=== PATIENT | male | born 1940 | race Caucasian/White ===

== ENCOUNTER 2020-02-05 21:43 | Inpatient (IN) | payer MEDICARE ==
[~2020-02-05] VITALS: Ht 185.4 cm; Wt 90.3 kg
[2020-02-05 21:54] VITALS: BP 152/54
--- NOTE | 2020-02-05 22:08 | NUR ---
PT DAUGHTER CONTACT #[phone] JA PUCKETT [phone].
[2020-02-05] MEDS ORDERED: GLUCOPHAGE500 M1 PO (22:09)
[2020-02-05] MEDS ORDERED: LOPRESSOR25 MG PO (22:09)
[2020-02-05] MEDS ORDERED: GLYBURIDE2.5 MG PO (22:09)
[2020-02-05] MEDS ORDERED: PRAVASTATIN SOD10 MG PO (22:09)
[2020-02-05] MEDS ORDERED: ASPIRIN81 M1 PO (22:10)
[2020-02-05] MEDS ORDERED: OMEPRAZOLE40 MG PO (22:10)
[2020-02-05] MEDS ORDERED: STOOL SOFTENER100 M3 PO (22:11)
--- NOTE | 2020-02-05 22:16 | NUR ---
PT PROMPTED FOR URINE SPECIMEN.
--- NOTE | 2020-02-05 22:16 | NUR ---
PT REPORTS RECENT SKIN CA REMOVAL BEHIND RIGHT EAR.NO DRAINAGE NOTED AT THIS TIME.
[2020-02-05 22:31] LABS: MEAN CELL VOLUME 82.4 fl (80.0-94.0); MEAN CORPUSCULAR HGB 23.6 pg (27.0-31.0); MEAN CORPUSCULAR HGB CONC 28.7 g/dl (33.0-37.0); MEAN PLATELET VOLUME 11.2 fl (9.6-12.3); PLATELET COUNT AUTOMATED 149 10*3/uL (130-400); RED BLOOD COUNT 2.16 10*6/uL (4.50-5.90); RED CELL DISTRI WIDTH 19.4 % (0-14.5); WHITE BLOOD COUNT 6.4 10*3/uL (4.8-10.8)
[2020-02-05 22:35] LABS: HEMATOCRIT 17.8 % (42.0-52.0)
--- NOTE | 2020-02-05 22:35 | NUR ---
THIS RN AT BEDSIDE WITH UBALDO STRONG FOR PT RECTAL EXAM.HEMOCCULT SPECIMEN COMPLETED WITH NEGATIVE RESULT.
[2020-02-05 22:45] LABS: ACT PARTIAL THROMBO TIME 21.9 SECONDS (20.0-32.1)
[2020-02-05 22:50] LABS: ALBUMIN 3.6 gm/dl (3.1-4.5); ALKALINE PHOSPHATASE 55 U/L (45-117); BUN 18 mg/dl (7-24); CHLORIDE 108 mmol/L (98-107); CREATININE 1.28 mg/dL (0.70-1.30); LIPASE 175 U/L (73-393); POTASSIUM 3.9 mmol/L (3.5-5.1); SGOT/AST 15 IU/L (3-35); SGPT/ALT 21 U/L (12-78); SODIUM 139 mmol/L (136-145); TOTAL PROTEIN 7.4 gm/dL (6.4-8.2)
[2020-02-05 22:52] LABS: TROPONIN I < 0.015 ng/ml (<0.045)
[2020-02-05 22:54] LABS: BILIRUBIN NEGATIVE (NEGATIVE); BLOOD NEGATIVE (NEGATIVE); CLARITY SL CLOUDY (CLEAR); COLOR YELLOW (YELLOW); GLUCOSE NEGATIVE (NEGATIVE); KETONE NEGATIVE (NEGATIVE); LEUKO ESTERASE 2+ (NEGATIVE); NITRITE NEGATIVE (NEGATIVE); SPECIFIC GRAVITY 1.025 (1.005-1.030); UROBILINOGEN 0.2 E.U./dl (0.2-1.0)
[2020-02-05 22:58] LABS: MICROCYTOSIS SLIGHT; PLATELET SUFFICIENCY NORMAL (NORMAL); TOTAL CELLS COUNTED 100 #CELLS
[2020-02-05 22:59] LABS: OVALOCYTES FEW
[2020-02-05 23:00] LABS: WBC 41-50 wbc/hpf (0-5)
[2020-02-05 23:01] LABS: BACTERIA TRACE
[2020-02-05 23:22] VITALS: BP 141/49
[2020-02-05 23:25] VITALS: BP 141/49
[2020-02-05 23:35] VITALS: BP 131/50
[2020-02-05 23:41] VITALS: BP 126/57
--- NOTE | 2020-02-05 23:42 | NUR ---
INFUSION OF PRBC'S CONTINUES, RATE INCREASED TO 150ML/HR.PT TOLERATING WELL.
--- NOTE | 2020-02-05 23:45 | NUR ---
PER PT, DAUGHTER VIKRAM CONTACTED AND PROVIDED UPDATE ON PT PLAN OF ADMISSION AND CARE.
[2020-02-05 23:55] VITALS: BP 152/57
[2020-02-06] VITALS (20 sets, daily range): BP systolic 106–152; BP diastolic 49–90
--- NOTE | 2020-02-06 00:34 | NUR ---
Time: 0000 A 80 year old MALE admitted to under services of ISAAC ARIAS DO, Pt. arrived via stretcher from ER. Chief complaint: ANEMIA, ABNORMAL LABS. BLOOD CURRENTLY RUNNING AT 240 ML/HR. PATIENT TOLERATING WELL. VITAL SIGNS TAKEN AND RECORDED. MARY ANN
--- NOTE | 2020-02-06 01:20 | NUR ---
SECOND BAG OF BLOOD HUNG. PATIENT TOLERATING WELL. VITAL SIGNS TAKEN AND RECORDED IN TAR. WILL CONTINUE TO MONITOR/ASSESS.
--- NOTE | 2020-02-06 01:30 | NUR ---
NOTIFIED DR THOMAS OF COMPLETED MED REC.
--- NOTE | 2020-02-06 03:59 | NUR ---
BLOOD TRANSFUSION DONE. PATIENT TOLERATED WELL. VITAL SIGNS STABLE. WILL CONTINUE TO MONITOR.
--- NOTE | 2020-02-06 04:28 | NUR ---
PATIENT TOOK HIS BIPAP OFF. STATED HE NEEDED A BREAK. HE STAYED ON IT ALL NIGHT. 6L NC CURRENTLY ON PATIENT. PULSE OX 93%. WILL CONTINUE TO MONITOR.
--- NOTE | 2020-02-06 05:36 | NUR ---
BRYANT BRASHER [id number] Please refer to the physician's history and physical for past medical history, comorbid conditions, and allergies. Diagnosis: ANEMIA Jean Score: 20,LOW OR NO RISK WOUND DESCRIPTIONS: Wound Number: 1 Location of the wound: right base of ear Type of wound: surgical Thickness: Full Size: 1.7cm x 1.5cm x 0.1cm Tunneling: none Undermining: none Sinus Tract: none Presence of Exudate: Serosanguineous Amount: Light Color: Red Odor: None Periwound Skin Appearance: Normal Wound edges: approximated Pain (associated with wound): none at time of assessment How does patient state this happened? pt stated that he had skin cancer removed and is to follow up with the surgeon 3rd week of february Surface the patient is resting on: Isoflex SKIN PREVENTION RECOMMENDATION: 1. Pressure redistribution support surface as appropriate 2. Elevate heels 3. Remove boots/TEDS every shift and reapply 4. Head of bed 30 degrees as tolerated 5. Assess nutrition and hydration 6. Manage moisture 7. Avoid the use of containment devices while in bed 8. Use absorptive products on surfaces limit layers of linens on bed 9. Turn and reposition every 1-2 hours in bed and every 1 hour in chair as tolerated 10. Weight shifts every 15 minutes while up in chair 11. Offloading with pillows or device to keep heels elevated off bed 12. Monitor skin at least every shift 13. Inspect under medical devices twice a day WOUND TREATMENT RECOMMENDATIONS: Keep area clean and dry patient states is supposed to leave area open to air per surgeon Keep follow up appointment mid February with surgeon
--- NOTE | 2020-02-06 05:41 | NUR ---
BRYANT BRASHER [id number] Please refer to the physician's history and physical for past medical history, comorbid conditions, and allergies. Diagnosis: ANEMIA Jean Score: 20,LOW OR NO RISK WOUND DESCRIPTIONS: Wound Number: 1 Location of the wound: base of right ear Type of wound: surgical Thickness: Full Size: 1.7cm x 1.5cm x 0.1cm Tunneling: none Undermining: none Sinus Tract: none Presence of Exudate: Serosanguineous Amount: Light Color: Yellow, red, brown Odor: None Periwound Skin Appearance: Normal Wound edges: approximated Pain (associated with wound): none at time of assessment How does patient state this happened? pt stated had surgery last week and has follow up appointment 3rd week in february Surface the patient is resting on: Isoflex SKIN PREVENTION RECOMMENDATION: 1. Pressure redistribution support surface as appropriate 2. Elevate heels 3. Remove boots/TEDS every shift and reapply 4. Head of bed 30 degrees as tolerated 5. Assess nutrition and hydration 6. Manage moisture 7. Avoid the use of containment devices while in bed 8. Use absorptive products on surfaces limit layers of linens on bed 9. Turn and reposition every 1-2 hours in bed and every 1 hour in chair as tolerated 10. Weight shifts every 15 minutes while up in chair 11. Offloading with pillows or device to keep heels elevated off bed 12. Monitor skin at least every shift 13. Inspect under medical devices twice a day WOUND TREATMENT RECOMMENDATIONS: Keep area clean and dry patient states is supposed to leave area open to air per surgeon Keep follow up appointment mid February with surgeon
[2020-02-06 05:55] LABS: HEMATOCRIT 21.1 % (42.0-52.0); MEAN CELL VOLUME 83.4 fl (80.0-94.0); MEAN CORPUSCULAR HGB 24.5 pg (27.0-31.0); MEAN CORPUSCULAR HGB CONC 29.4 g/dl (33.0-37.0); MEAN PLATELET VOLUME 10.9 fl (9.6-12.3); PLATELET COUNT AUTOMATED 129 10*3/uL (130-400); RED BLOOD COUNT 2.53 10*6/uL (4.50-5.90); WHITE BLOOD COUNT 5.9 10*3/uL (4.8-10.8)
[2020-02-06 06:10] LABS: BUN 17 mg/dl (7-24); CHLORIDE 110 mmol/L (98-107); CREATININE 1.14 mg/dL (0.70-1.30); POTASSIUM 4.1 mmol/L (3.5-5.1); SODIUM 142 mmol/L (136-145)
--- NOTE | 2020-02-06 06:18 | NUR ---
DR HARO NOTIFIED OF CONSULT.
--- NOTE | 2020-02-06 06:19 | NUR ---
CRITICAL LAB VALUE OF 6.2 HEMOGLOBIN RECEIVED FROM LAB. NOTIFIED DR THOMAS. HE ORDERED THE PATIENT TO HAVE ANOTHER UNIT OF PACKED RED BLOOD CELLS.
[2020-02-06 06:21] LABS: IRON 96 ug/dL (65-175); TOTAL IRON BINDING CAPACITY 422 ug/dl (250-450)
--- NOTE | 2020-02-06 07:02 | NUR ---
THIRD BAG OF PACKED RED BLOOD CELLS HUNG. VITAL SIGNS STABLE. WILL MONITOR VITAL SIGNS IN 15 MIN
[2020-02-06 07:05] LABS: PLATELET SUFFICIENCY LOW (NORMAL); TOTAL CELLS COUNTED 100 #CELLS
--- NOTE | 2020-02-06 07:17 | NUR ---
VITAL SIGNS STABLE AND RECORDED. PATIENT TOLERATING BLOOD WELL. NO COMPLAINTS AT THIS TIME. DAYSHIFT NURSE TO CONTINUE TO MONITOR.
--- NOTE | 2020-02-06 08:15 | NUR ---
PT RESTING IN BED. RESP-EASY AND REGULAR. BLOOD INFUSING WITH NO PROBLEM. NO C/O AT THIS TIME. CALL LIGHT IN REACH. SEE SHIFT ASSESSMENT.
--- NOTE | 2020-02-06 10:00 | NUR ---
DR. NAVARRETE MADE AWARE HOME MEDICATIONS VERIFED AND NEED ORDERED.
--- NOTE | 2020-02-06 11:49 | NUR ---
Human Resources Temp in to talk to patient. Patient states lives at home with alone. There are no steps in the home. Physician: liz vazquez Pharmacy: mail Home health services: none Patient's level of ADLs: INDEPENDENT Patient has working utilities: all working DME: none Follow-up physician's appointment after d/c: will be made by hospitalist nurse director upon discharge Does patient want to access PORTAL?: no Discharge plan discussed with patient, he lives at home, is independent in adls and ambulation, drives, he states he will return home when medically stable and denies any home needs, case management will follow. ALY BISHOP
[2020-02-06 13:16] LABS: BASO % 0.2 % (0.0-1.0); EOS % 0.5 % (1.0-4.0); HEMATOCRIT 23.7 % (42.0-52.0); LYMPH # 1.7 10*3/uL (1.3-4.4); LYMPH % 30.2 % (27.0-41.0); MEAN CELL VOLUME 84.3 fl (80.0-94.0); MEAN CORPUSCULAR HGB 25.6 pg (27.0-31.0); MEAN CORPUSCULAR HGB CONC 30.4 g/dl (33.0-37.0); MEAN PLATELET VOLUME 10.7 fl (9.6-12.3); MONO # 1.3 10*3/uL (0.1-1.0); NEUT # 2.5 10*3/uL (2.3-7.9); NEUT % 43.1 % (47.0-73.0); PLATELET COUNT AUTOMATED 127 10*3/uL (130-400); RED BLOOD COUNT 2.81 10*6/uL (4.50-5.90); RED CELL DISTRI WIDTH 17.8 % (0-14.5); WHITE BLOOD COUNT 5.7 10*3/uL (4.8-10.8)
[2020-02-06 13:42] LABS: PLATELET SUFFICIENCY LOW (NORMAL); POLYCHROMASIA SLIGHT; SCHISTOCYTES FEW; TOTAL CELLS COUNTED 100 #CELLS
--- NOTE | 2020-02-06 14:30 | NUR ---
RESTING IN BED. RESP-EASY AND REGULAR. NO C/O AT THIS TIME. CALL LIGHT IN REACH.
--- NOTE | 2020-02-06 17:00 | NUR ---
PT RESTING IN BED. TOLERATED ROUTINE MED IWTH NO PROBLEM. NO C/O AT THIS TIME. CALL LIGHT IN REACH. SEE SHIFT ASSESSMENT.
--- NOTE | 2020-02-06 17:20 | NUR ---
PREP STARTED FOR COLO FOR TOMORROW.
[2020-02-07] VITALS (7 sets, daily range): BP systolic 108–135; BP diastolic 44–62
[2020-02-07 06:35] LABS: BUN 13 mg/dl (7-24); CHLORIDE 107 mmol/L (98-107); CREATININE 1.22 mg/dL (0.70-1.30); HEMATOCRIT 28.7 % (42.0-52.0); MEAN CELL VOLUME 82.7 fl (80.0-94.0); MEAN CORPUSCULAR HGB 24.5 pg (27.0-31.0); MEAN CORPUSCULAR HGB CONC 29.6 g/dl (33.0-37.0); MEAN PLATELET VOLUME 11.1 fl (9.6-12.3); NUCLEATED RED BLOOD CELL 0.3 % (0.0-0.0); POTASSIUM 3.9 mmol/L (3.5-5.1); RED BLOOD COUNT 3.47 10*6/uL (4.50-5.90); RED CELL DISTRI WIDTH 18.3 % (0-14.5); SODIUM 141 mmol/L (136-145); WHITE BLOOD COUNT 7.1 10*3/uL (4.8-10.8)
[2020-02-07 06:40] LABS: PLATELET COUNT AUTOMATED 182 10*3/uL (130-400)
--- NOTE | 2020-02-07 06:45 | NUR ---
AGAIN ATTEMPTED TO PLACE OXYGEN ON PATIENT. PATIENT STATES TAIWO WHY I NEED THIS OXYGEN OR IV MEDICATION. IM GOING HOME TODAY. AGAIN EXPLAINED TO PATIENT WHY HE NEEDS THESE MEDICATIONS AND OXYGEN. PATIENT FINALLY AGREEING TO WEAR THE NASAL CANNULA. 5L PLACED ON PATIENT. WILL CONTINUE TO MONITOR.
[2020-02-07 07:12] LABS: TOTAL CELLS COUNTED 100 #CELLS
[2020-02-07 07:13] LABS: PLATELET SUFFICIENCY NORMAL (NORMAL)
--- NOTE | 2020-02-07 08:55 | NUR ---
OFF FLOOR FOR EGD/COLO AT THIS TIME.
--- NOTE | 2020-02-07 10:15 | NUR ---
case management talks with patient, he will return home when medically stable and denies any home needs
--- NOTE | 2020-02-07 10:44 | NUR ---
REPORT REC'D FROM SURGERY FOLLOWING EGD/COLO.
--- NOTE | 2020-02-07 15:44 | NUR ---
DISCHARGE PHOTO/MEASUREMENTS TAKEN OF FACE WOUND.
--- NOTE | 2020-02-07 15:44 | NUR ---
Discharge instructions reviewed with patient/family. Patient receptive and verbalizes understanding. Follow-up care arranged. Written instructions given to patient/family. ZECHARIAH GRUBER
--- NOTE | 2020-02-07 15:44 | NUR ---
Nutritional Support Services Note: Appetite is good for meals, he eats 100%. 1800 fermin diet as ordered. Healing surgical incision on right ear secondary to CA removal. Encouraged continued good po intake to promote healing. Will follow as needed. No other nutrition intervention needed at this time. Pt will receive a night snack. Brittny Rodriguez Rdn Ld
== END 2020-02-07 15:53 | disposition home or self-care (01) | DRG 394 ==
LOC: ED 21:43 → EDHOLD 23:12 → 4E 23:12
PROVIDERS: Family Medicine; Internal Medicine; Nurse Practitioner Family; ADMIT Internal Medicine
PROC: 30233N1 Transfusion of Nonautologous Red Blood Cells into Peripheral Vein, Percutaneous Approach (ICD-10-PCS; principal; 2020-02-05)
PROC: 0DB78ZX Excision of Stomach, Pylorus, Via Natural or Artificial Opening Endoscopic, Diagnostic (ICD-10-PCS; 2020-02-07)
PROC: 0DJD8ZZ Inspection of Lower Intestinal Tract, Via Natural or Artificial Opening Endoscopic (ICD-10-PCS; 2020-02-07)
DX: K64.8 Other hemorrhoids (principal); E87.2 Acidosis; D50.0 Iron deficiency anemia secondary to blood loss (chronic); K29.70 Gastritis, unspecified, without bleeding; K57.30 Diverticulosis of large intestine without perforation or abscess without bleeding; I10 Essential (primary) hypertension; E78.5 Hyperlipidemia, unspecified; Z96.659 Presence of unspecified artificial knee joint; Z96.619 Presence of unspecified artificial shoulder joint; K21.9 Gastro-esophageal reflux disease without esophagitis; E87.8 Other disorders of electrolyte and fluid balance, not elsewhere classified; E11.65 Type 2 diabetes mellitus with hyperglycemia; D69.6 Thrombocytopenia, unspecified; Z82.0 Family history of epilepsy and other diseases of the nervous system; Z80.0 Family history of malignant neoplasm of digestive organs; Z79.82 Long term (current) use of aspirin; Z79.899 Other long term (current) drug therapy; Z79.84 Long term (current) use of oral hypoglycemic drugs

== ENCOUNTER → 2020-09-09 | Outpatient (CLI) | payer MEDICARE ==
[~2020-09-09] MED LIST: ASPIRIN81 M1 PO; GLUCOPHAGE500 M1 PO; GLYBURIDE2.5 MG PO; LOPRESSOR25 MG PO; OMEPRAZOLE40 MG PO; PRAVASTATIN SOD10 MG PO; STOOL SOFTENER100 M3 PO
== END | disposition home or self-care (01) ==
LOC: RESCLI 10:09
PROVIDERS: ATTEND Internal Medicine
DX: I10 Essential (primary) hypertension (principal); G25.0 Essential tremor; K21.9 Gastro-esophageal reflux disease without esophagitis; K29.51 Unspecified chronic gastritis with bleeding; E11.9 Type 2 diabetes mellitus without complications; Z23 Encounter for immunization; Z79.899 Other long term (current) drug therapy; Z98.890 Other specified postprocedural states

== ENCOUNTER 2021-02-19 09:11 | Emergency (ER) | payer MEDICARE ==
[~2021-02-19] VITALS: Wt 98.9 kg
[2021-02-19] MEDS ORDERED: CYCLOBENZAPRINE5 M3 PO ×2 (11:40→11:48)
[2021-02-19] MEDS ORDERED: TYLENOL325 M1 PO ×2 (11:40→11:48)
[2021-02-19] MEDS ORDERED: VOLTAREN100 GM T (11:48)
[2021-02-19] MEDS ORDERED: ARTHRITIS PAI42.5 GM T (11:48)
== END 2021-02-19 11:48 | disposition home or self-care (01) ==
LOC: ED 09:11
DX: M47.812 Spondylosis without myelopathy or radiculopathy, cervical region (principal); M54.6 Pain in thoracic spine; M54.2 Cervicalgia; Z79.84 Long term (current) use of oral hypoglycemic drugs; Z79.899 Other long term (current) drug therapy; Z90.49 Acquired absence of other specified parts of digestive tract; Z98.890 Other specified postprocedural states

== ENCOUNTER → 2021-03-06 | Outpatient (CLI) | payer MEDICARE ==
[~2021-03-06] MED LIST changes: +ARTHRITIS PAI42.5 GM T; +CYCLOBENZAPRINE5 M3 PO; +TYLENOL325 M1 PO; +VOLTAREN100 GM T
[2021-03-06 12:25] LABS: BASO % 0.1 % (0.0-1.0); EOS % 0.5 % (1.0-4.0); HEMATOCRIT 39.9 % (42.0-52.0); LYMPH # 2.7 10*3/uL (1.3-4.4); LYMPH % 34.1 % (27.0-41.0); MEAN CELL VOLUME 92.8 fl (80.0-94.0); MEAN CORPUSCULAR HGB 30.7 pg (27.0-31.0); MEAN CORPUSCULAR HGB CONC 33.1 g/dl (33.0-37.0); MONO # 1.2 10*3/uL (0.1-1.0); MONO % 14.8 % (3.0-9.0); NEUT # 3.9 10*3/uL (2.3-7.9); NEUT % 48.5 % (47.0-73.0); PLATELET COUNT AUTOMATED 195 10*3/uL (130-400); RED CELL DISTRI WIDTH 14.3 % (0-14.5)
[2021-03-06 13:48] LABS: ALBUMIN 3.6 gm/dl (3.1-4.5); ALKALINE PHOSPHATASE 49 U/L (45-117); BUN 17 mg/dl (7-24); CHLORIDE 106 mmol/L (98-107); CREATININE 1.26 mg/dL (0.70-1.30); POTASSIUM 3.8 mmol/L (3.5-5.1); SGOT/AST 23 IU/L (3-35); SGPT/ALT 38 U/L (12-78); SODIUM 135 mmol/L (136-145); TOTAL PROTEIN 7.8 gm/dL (6.4-8.2)
[2021-03-08 09:06] LABS: ATYPICAL PANCA <1:20 titer (Neg:<1:20); CYTOPLASMIC (C-ANCA) <1:20 titer (Neg:<1:20)
[2021-03-11 12:07] LABS: SACCHAROMYCES CEREVISIAE IGA 36.7 Units (0.0-24.9)
== END | disposition home or self-care (01) ==
LOC: LAB 11:56
PROVIDERS: ATTEND Student in an Organized Health Care Education/Training Program
DX: E11.9 Type 2 diabetes mellitus without complications (principal); R53.83 Other fatigue; K52.9 Noninfective gastroenteritis and colitis, unspecified

== ENCOUNTER → 2021-04-18 | Outpatient (CLI) | payer MEDICARE | END | disposition home or self-care (01) | LOC: RAD 08:52 | PROVIDERS: ATTEND Family Medicine | DX: M54.2 Cervicalgia (principal); R05 Cough ==

== ENCOUNTER 2021-09-14 00:53 | Emergency (ER) | payer MEDICARE ==
[~2021-09-14] VITALS: Ht 187.9 cm; Wt 93.4 kg
[~2021-09-14 00:53] MED LIST changes: -GLUCOPHAGE500 M1 PO; +GLUCOPHAGE500 MG PO
[2021-09-14 02:11] LABS: BASO % 0.1 % (0.0-1.0); EOS # 0.1 10*3/uL (0.0-0.4); EOS % 0.7 % (1.0-4.0); HEMATOCRIT 36.5 % (42.0-52.0); LYMPH # 2.1 10*3/uL (1.3-4.4); LYMPH % 22.7 % (27.0-41.0); MEAN CELL VOLUME 91.5 fl (80.0-94.0); MEAN CORPUSCULAR HGB 30.1 pg (27.0-31.0); MEAN CORPUSCULAR HGB CONC 32.9 g/dl (33.0-37.0); MEAN PLATELET VOLUME 9.8 fl (9.6-12.3); MONO # 1.5 10*3/uL (0.1-1.0); NEUT # 5.4 10*3/uL (2.3-7.9); NEUT % 59.2 % (47.0-73.0); PLATELET COUNT AUTOMATED 179 10*3/uL (130-400); RED BLOOD COUNT 3.99 10*6/uL (4.50-5.90); RED CELL DISTRI WIDTH 14.2 % (0-14.5); WHITE BLOOD COUNT 9.1 10*3/uL (4.8-10.8)
[2021-09-14 02:38] LABS: ALBUMIN 3.4 gm/dl (3.1-4.5); ALKALINE PHOSPHATASE 49 U/L (45-117); BUN 17 mg/dl (7-24); CHLORIDE 106 mmol/L (98-107); CREATININE 1.02 mg/dL (0.70-1.30); POTASSIUM 3.5 mmol/L (3.5-5.1); SGOT/AST 20 IU/L (3-35); SGPT/ALT 24 U/L (12-78); SODIUM 137 mmol/L (136-145); TOTAL PROTEIN 7.8 gm/dL (6.4-8.2)
[2021-09-14] MEDS ORDERED: BENZONATATE100 M1 PO (04:32)
== END 2021-09-14 05:01 | disposition home or self-care (01) ==
LOC: ED 00:53
PROVIDERS: Emergency Medicine
DX: J06.9 Acute upper respiratory infection, unspecified (principal); Z20.822 Contact with and (suspected) exposure to COVID-19; E11.9 Type 2 diabetes mellitus without complications; I10 Essential (primary) hypertension; K21.9 Gastro-esophageal reflux disease without esophagitis; Z79.899 Other long term (current) drug therapy

== ENCOUNTER 2022-04-15 23:35 | Emergency (ER) | payer MEDICARE ==
[~2022-04-15] VITALS: Ht 187.9 cm; Wt 96.2 kg
[~2022-04-15 23:35] MED LIST changes: +BENZONATATE100 M1 PO
== END 2022-04-16 01:01 | disposition home or self-care (01) ==
LOC: ED 23:35
DX: M79.645 Pain in left finger(s) (principal); Z79.899 Other long term (current) drug therapy; Z90.89 Acquired absence of other organs; Z90.49 Acquired absence of other specified parts of digestive tract; Z98.890 Other specified postprocedural states

== ENCOUNTER 2022-06-09 10:11 | Emergency (ER) | payer MEDICARE ==
[~2022-06-09] VITALS: Wt 96.2 kg
[2022-06-09 11:09] LABS: BILIRUBIN Negative (Negative); BLOOD Negative (Negative); CLARITY Clear (Clear); COLOR Yellow (Yellow); GLUCOSE 1+ (Negative); KETONE Negative (Negative); LEUKO ESTERASE 2+ (Negative); NITRITE Negative (Negative); PH 5.5 (4.5-8.0); SPECIFIC GRAVITY 1.015 (1.001-1.030); UROBILINOGEN 0.2 E.U./dl (0.0-1.0)
[2022-06-09 11:15] LABS: BASO % 0.1 % (0.0-1.0); EOS % 0.4 % (1.0-4.0); HEMATOCRIT 38.9 % (42.0-52.0); LYMPH # 2.5 10*3/uL (1.3-4.4); LYMPH % 32.7 % (27.0-41.0); MEAN CELL VOLUME 94.4 fl (80.0-94.0); MEAN CORPUSCULAR HGB 30.8 pg (27.0-31.0); MEAN CORPUSCULAR HGB CONC 32.6 g/dl (33.0-37.0); MEAN PLATELET VOLUME 10.5 fl (9.6-12.3); MONO # 1.2 10*3/uL (0.1-1.0); MONO % 15.9 % (3.0-9.0); NEUT # 3.8 10*3/uL (2.3-7.9); NEUT % 49.3 % (47.0-73.0); PLATELET COUNT AUTOMATED 145 10*3/uL (130-400); RED BLOOD COUNT 4.12 10*6/uL (4.50-5.90); RED CELL DISTRI WIDTH 14.6 % (0-14.5); WHITE BLOOD COUNT 7.6 10*3/uL (4.8-10.8)
[2022-06-09 11:20] LABS: RBC 0-2 rbc/hpf (0-2); WBC 21-30 wbc/hpf (0-5)
[2022-06-09 11:28] LABS: BUN 20 mg/dl (7-24); CHLORIDE 104 mmol/L (98-107); CREATININE 1.34 mg/dL (0.70-1.30); POTASSIUM 4.3 mmol/L (3.5-5.1); SODIUM 138 mmol/L (136-145)
[2022-06-09] MEDS ORDERED: HYDROCODONE-AC1 EAC1 PO (12:53)
== END 2022-06-09 13:12 | disposition home or self-care (01) ==
LOC: ED 10:11
PROVIDERS: Internal Medicine
DX: N20.0 Calculus of kidney (principal); Z98.890 Other specified postprocedural states; Z79.899 Other long term (current) drug therapy

== ENCOUNTER → 2023-03-14 | Outpatient (CLI) | payer MEDICARE ==
[~2023-03-14] MED LIST changes: +HYDROCODONE-AC1 EAC1 PO
== END | disposition home or self-care (01) ==
LOC: RESCLI 01:16
PROVIDERS: ATTEND Internal Medicine
DX: K52.9 Noninfective gastroenteritis and colitis, unspecified (principal); E11.9 Type 2 diabetes mellitus without complications; K21.9 Gastro-esophageal reflux disease without esophagitis; E78.5 Hyperlipidemia, unspecified; R21 Rash and other nonspecific skin eruption; F10.90 Alcohol use, unspecified, uncomplicated; E55.9 Vitamin D deficiency, unspecified; I10 Essential (primary) hypertension; Z98.890 Other specified postprocedural states; Z72.89 Other problems related to lifestyle; Z79.899 Other long term (current) drug therapy; Z79.84 Long term (current) use of oral hypoglycemic drugs

== ENCOUNTER → 2023-06-10 | Outpatient (CLI) | payer MEDICARE | END | disposition home or self-care (01) | LOC: RAD 11:30 | PROVIDERS: ATTEND Nurse Practitioner Family | DX: S69.91XA Unspecified injury of right wrist, hand and finger(s), initial encounter (principal); M19.041 Primary osteoarthritis, right hand; X58.XXXA Exposure to other specified factors, initial encounter; Y93.89 Activity, other specified; Y92.89 Other specified places as the place of occurrence of the external cause; Y99.8 Other external cause status ==

== ENCOUNTER → 2023-11-11 | Outpatient (CLI) | payer MEDICARE ==
[2023-11-11 11:28] LABS: ALKALINE PHOSPHATASE 45 U/L (46-116); BUN 20 mg/dl (9-23); CHLORIDE 106 mmol/L (98-107); POTASSIUM 4.2 mmol/L (3.4-5.1); SGPT/ALT 12 U/L (5-49); TOTAL PROTEIN 7.9 gm/dL (6.0-8.0)
== END | disposition home or self-care (01) ==
LOC: LAB 10:11
PROVIDERS: ATTEND Orthopaedic Surgery
DX: M79.642 Pain in left hand (principal); M79.641 Pain in right hand; R53.83 Other fatigue

== ENCOUNTER → 2024-02-09 | Outpatient (CLI) | payer MEDICARE ==
[2024-02-09 15:42] LABS: BASO % 0.1 % (0.0-1.0); EOS % 0.1 % (1.0-4.0); HEMATOCRIT 35.5 % (42.0-52.0); LYMPH # 2.7 10*3/uL (1.3-4.4); LYMPH % 39.3 % (27.0-41.0); MEAN CELL VOLUME 89.9 fl (80.0-94.0); MEAN CORPUSCULAR HGB 28.6 pg (27.0-31.0); MEAN CORPUSCULAR HGB CONC 31.8 g/dl (33.0-37.0); MEAN PLATELET VOLUME 10.7 fl (9.6-12.3); MONO # 1.1 10*3/uL (0.1-1.0); MONO % 16.3 % (3.0-9.0); NEUT # 2.9 10*3/uL (2.3-7.9); NEUT % 43.5 % (47.0-73.0); PLATELET COUNT AUTOMATED 153 10*3/uL (130-400); RED BLOOD COUNT 3.95 10*6/uL (4.50-5.90); RED CELL DISTRI WIDTH 15.4 % (0-14.5); WHITE BLOOD COUNT 6.8 10*3/uL (4.8-10.8)
[2024-02-09 15:56] LABS: URIC ACID 4.5 mg/dL (3.7-9.2)
== END | disposition home or self-care (01) ==
LOC: LAB 15:29
PROVIDERS: ATTEND Orthopaedic Surgery
DX: M79.642 Pain in left hand (principal); M79.89 Other specified soft tissue disorders; R53.83 Other fatigue

== ENCOUNTER → 2024-03-08 | Outpatient (CLI) | payer MEDICARE | END | disposition home or self-care (01) | LOC: CARD 01:29 | PROVIDERS: ATTEND Nurse Practitioner Family | DX: I34.81 Nonrheumatic mitral (valve) annulus calcification (principal); R01.1 Cardiac murmur, unspecified ==

== ENCOUNTER → 2024-03-22 | Outpatient (CLI) | payer MEDICARE | END | disposition home or self-care (01) | LOC: RESCLI 01:26 | PROVIDERS: ATTEND Internal Medicine | DX: E11.65 Type 2 diabetes mellitus with hyperglycemia (principal); D50.9 Iron deficiency anemia, unspecified; E78.5 Hyperlipidemia, unspecified; I10 Essential (primary) hypertension; K21.9 Gastro-esophageal reflux disease without esophagitis; K59.1 Functional diarrhea; N40.0 Benign prostatic hyperplasia without lower urinary tract symptoms; E55.9 Vitamin D deficiency, unspecified; Z79.899 Other long term (current) drug therapy; Z98.890 Other specified postprocedural states ==

== ENCOUNTER → 2024-05-28 | Outpatient (CLI) | payer MEDICARE | END | disposition home or self-care (01) | LOC: US 12:34 | PROVIDERS: ATTEND Student in an Organized Health Care Education/Training Program | DX: R22.1 Localized swelling, mass and lump, neck (principal) ==

== ENCOUNTER 2024-11-18 14:53 | Emergency (ER) | payer MEDICARE | END 2024-11-18 17:10 | disposition left against medical advice (07) | LOC: ED 14:53 | DX: R19.7 Diarrhea, unspecified (principal); Z53.21 Procedure and treatment not carried out due to patient leaving prior to being seen by health care provider ==

== ENCOUNTER 2025-02-08 13:18 | Emergency (ER) | payer MEDICARE ==
[~2025-02-08] VITALS: Ht 187.9 cm; Wt 83.9 kg
[2025-02-08] MEDS ORDERED: Tdap Vaccine 0.5 ML SYR (Adult Vaccine) IM ONE (14:00)
== END 2025-02-08 15:10 | disposition home or self-care (01) ==
LOC: ED 13:18
DX: S00.83XA Contusion of other part of head, initial encounter (principal); S60.222A Contusion of left hand, initial encounter; S60.212A Contusion of left wrist, initial encounter; S80.02XA Contusion of left knee, initial encounter; E11.9 Type 2 diabetes mellitus without complications; E78.5 Hyperlipidemia, unspecified; I10 Essential (primary) hypertension; Z87.442 Personal history of urinary calculi; K21.9 Gastro-esophageal reflux disease without esophagitis; Z79.899 Other long term (current) drug therapy; Z79.84 Long term (current) use of oral hypoglycemic drugs; Z90.49 Acquired absence of other specified parts of digestive tract; W01.10XA Fall on same level from slipping, tripping and stumbling with subsequent striking against unspecified object, initial encounter; Y93.89 Activity, other specified; Y92.89 Other specified places as the place of occurrence of the external cause; Y99.8 Other external cause status